=== PATIENT | female | born 1945 ===

== ENCOUNTER → 2017-01-31 | Outpatient (CLI) | payer MEDICARE, MEDICAID ==
--- NOTE | 2017-01-31 16:42 | US ---
EXAM DESCRIPTION: Venous,Lower Extremity LT CLINICAL HISTORY: LEFT LEG PAIN COMPARISON: None Available. TECHNIQUE: Two -dimensional and doppler sonographic evaluation of the deep venous system of the left lower extremity. FINDINGS: Doppler evaluation shows normal color flow and normal phasicity and augmentation of the left common femoral vein, deep femoral vein, femoral vein, popliteal vein, greater saphenous vein, peroneal, and posterior tibial vein. The left lower extremity deep veins showed normal occlusion with transducer pressure. Two-dimensional survey showed no echogenic thrombus within these veins. IMPRESSION: 1. Duplex ultrasound evaluation of the left lower extremity deep venous system showing no evidence of thrombosis or embolism. Electronically signed by: Brian Moon MD 01/31/2017 4:41 PM CDT
== END | disposition home or self-care (01) ==
LOC: US 11:35
PROVIDERS: ATTEND General Practice
DX: M79.605 Pain in left leg (principal)

== ENCOUNTER → 2017-07-29 | Outpatient (CLI) | payer MEDICARE, MEDICAID ==
--- NOTE | 2017-07-31 22:49 | MRI ---
MRI left ankle without contrast INDICATION: Ankle pain anterior and medial status post surgery left foot TECHNIQUE: Noncontrast MR imaging left ankle FINDINGS: No osteochondral lesion of the talus. No advanced arthrosis or coalition. Achilles and plantar aponeurosis are intact. There is osteoarthrosis with joint space narrowing at the calcaneocuboid joint. Scattered mild midfoot osteoarthrosis multifocal. There is also joint space narrowing indicating osteoarthrosis in the talonavicular joint. There is metal artifact near the region of the posterior tibialis attachment apparently from posterior tibialis reconstruction correlate with surgical history. This area is obscured by artifact but there is no ozzie rupture or retraction of the posterior tibialis tendon. There is an indistinct distal peroneus brevis with flattening and thinning of the proximal portion. Findings indicate tendinosis and mild chronic partial tear. Prominent yellow marrow pattern suggests possible osteopenia/osteoporosis consider bone densitometry/DEXA. Ill-defined tendinosis distal posterior tibialis tendon especially near the repair site. Mild soft tissue edema anterior medial aspect of the ankle and foot superficial to the posterior tibialis tendon. IMPRESSION: Multifocal osteoarthrosis calcaneocuboid and talonavicular primarily with lower grade changes in the TMT compartments and the remainder of the midfoot Metal artifact likely from distal posterior tibialis repair with tendinosis but no ozzie rupture or retraction Tendinosis and low-grade chronic partial tear peroneus brevis Soft tissue edema anterolateral foot and ankle Prominent yellow marrow question osteopenia/osteoporosis consider bone densitometry DEXA Electronically signed by: Owen Dawkins MD 07/31/2017 10:47 PM CDT
== END | disposition home or self-care (01) ==
LOC: MRI 10:00
PROVIDERS: ATTEND General Practice
DX: M25.572 Pain in left ankle and joints of left foot (principal)

== ENCOUNTER → 2018-03-03 | Outpatient (CLI) | payer MEDICARE, MEDICAID ==
--- NOTE | 2018-03-03 14:28 | MRI ---
EXAM DESCRIPTION: Lumbar Spine w/o Contrast : Magnetic Resonance Imaging. CLINICAL HISTORY: LUMBAR COMPRESSION FX S32.0005 COMPARISON: LUMBAR TECHNIQUE: Multiplanar, multiple standard sequences, non contrast MRI, lumbar spine. FINDINGS: L5-S1: No significant disc desiccation. No posterior disc bulging. Minimal concavity in the inferior L5 endplate. No marrow edema. Bilateral facet arthrosis more on the right with left flavum ligament hypertrophy. Mild canal narrowing. Moderate right foraminal narrowing. Abnormal marrow edema in the S1 segment extending into the pedicles bilaterally and also extending inferiorly into the sacral ala and the sacral bodies. Question of expansion of the left S2 and S3 sacral cedeño. L4-5: No significant desiccation of the disc. No posterior bulging. Hyperintense T2-weighted annular fissure in the posterior margin. Minimal hypertrophy of the flavum ligaments. Mild canal narrowing. Mild right foraminal narrowing and moderate left foraminal narrowing. Minimal facet arthrosis bilaterally. Concavities of the superior and inferior endplates with no marrow edema. L3-4: Desiccated signal minimal in the disc. Small posterior midline focal bulge or protrusion. Concavity of the superior L4 endplate more than the inferior L3 endplate. No marrow edema. Mild left foraminal narrowing and mild to moderate right foraminal narrowing. L2-3: Partially desiccated signal in the disc with no bulging. Expansion of the disc space with concavity of the superior L3 endplate and the inferior L2 endplate. Marrow edema in the L3 endplate. Posterior elements unremarkable. No canal stenosis. Bilateral moderate foraminal narrowing. L1-2: Concavities of the superior and inferior endplates with expansion of the disc but no significant desiccation. Moderate bilateral foraminal narrowing. No abnormal marrow edema in the endplates. Minimal facet arthrosis and flavum ligament hypertrophy but no canal stenosis. T12-L1: Concavities of the superior L1 endplate and the inferior T12 endplate with irregularities in the superior L1 endplate and significant loss of height in the central vertebral body. No marrow edema in the vertebral body or posterior elements. 3 mm retropulsion of the superior endplate with moderate narrowing of the canal. Conus terminates just above the disc space. Bilateral moderate foraminal narrowing. Mild central compression injury of T12 with retropulsion of the superior endplate which is abutting the distal cord. Normal signal in the cord. T11 vertebral body height is unremarkable. Concavities in the superior and inferior T10 endplates with augmentation material within the body. Marked compression of the mid and anterior T9 vertebral body but no significant retropulsion. Right convex thoracolumbar curvature. Paravertebral soft tissues demonstrate muscle atrophy.. Normal marrow signal in the remaining vertebral bodies and the posterior elements. No other Vertebral bodies are compressed . IMPRESSION: 1. Multiple concavities in the endplates and compression deformities at multiple levels. Marrow edema in the superior L3 endplate which is depressed suggests recent injury. 2. Marrow edema in the S1 sacral segment extending into the bilateral sacral ala and the more inferior sacrum suggests recent injury which could be a result of direct trauma or stress fracture. Recommend MRI scan of the pelvis and sacrum for correlation. 3. Annular fissure in the posterior L4-5 disc. Moderate left foraminal narrowing. Moderate right foraminal narrowing at L5-S1. 4. Small posterior midline focal bulge or protrusion of the L3-4 disc. Mild to moderate right foraminal narrowing. Mild canal narrowing. 5. Bilateral moderate foraminal narrowing L1-2. 6. Multiple old compression injuries in the included thoracic spine except for T11. Previous augmentation T10 vertebral body. T12 vertebral body compression is old. Electronically signed by: Brian Moon MD 03/03/2018 2:27 PM [facility]
== END ==
LOC: MRI 11:00
PROVIDERS: ATTEND General Practice
DX: S32.000S Wedge compression fracture of unspecified lumbar vertebra, sequela (principal); M51.26 Other intervertebral disc displacement, lumbar region; M51.16 Intervertebral disc disorders with radiculopathy, lumbar region

== ENCOUNTER → 2018-09-22 | Outpatient (CLI) | payer MEDICARE, MEDICAID ==
--- NOTE | 2018-09-22 14:59 | CT ---
EXAM DESCRIPTION: Chest w/Contrast : Computed Tomography. CLINICAL HISTORY: 73 years Female ABNORMAL CXR COMPARISON: None. TECHNIQUE: Spiral-axial scans at 5 x 5 mm intervals through the lungs and thorax with IV contrast. 2.5 x 5 mm lung algorithm axial reconstructions. Coronal and sagittal 2.0 Mm reconstructions. No adverse reactions. Total Exam DLP: 161.95 mGy-cm. This exam was performed according to our departmental dose-optimization program which includes automated exposure control, adjustment of the mA and/or kV according to patient size and/or use of iterative reconstruction technique; to reduce radiation dose to as low as reasonably achievable (ALARA). Nodule measurements under 10 mm are given as mean value of 3 axes diameters.. Some images are degraded by patient respiratory motion and body motion. FINDINGS: Lungs and large airways: 2 mm calcified nodule posterior left upper lobe anterior to the upper major fissure on axial series 4, image 24. Pleural parenchymal scarring in the inferior lingula and in the left lower lobe. Basilar posterior dependent atelectasis more left than right. No abnormal nodules or masses. No focal infiltrate. Decreased volume left lower lobe. Pleural spaces: Bilateral scattered focal pleural thickening. Bilateral apical pleural thickening. Bilateral basilar pleural thickening. No effusion or pneumothorax bilaterally. Mediastinum and Bia: No distinct enlarged nodes are soft tissue masses. Distention of esophagus by apparent food particles from the level of the raúl to just above the gastroesophageal junction and in the distal esophagus extending into the stomach. Great vessels and Heart: Atherosclerotic calcification in the aortic arch and descending thoracic aorta. Ectasia of the aortic arch. Coronary artery calcifications. Calcification of some of the included brachiocephalic vessels. Mild cardiac enlargement. Bilateral main pulmonary arteries and bilateral lobar and segmental pulmonary artery branches showing no filling defects. Soft tissues of neck base, axillae, and chest wall: Bilateral axillary nodes are not enlarged. Thyroid gland negative. Bilateral vascular and parenchymal calcifications in the breasts. Upper abdomen: Stomach distended by fluid. Also extending into the duodenum. No free fluid or free air in the included peritoneal space. Atherosclerotic changes in the abdominal aorta and major branch vessels. Partial visualization of the gallbladder. Osseous structures: Exaggerated thoracic kyphosis with overall loss of bone density. Multiple levels of compression fractures with prior vertebral body augmentation at T11 and T9. Possible cement anterior T10. Untreated compression fractures T6-T8, T10-L3. Arthrosis advanced in the left glenohumeral joint. Bilateral sternoclavicular arthrosis. IMPRESSION: 1. No abnormal nodules, no masses, and no focal infiltrates in the lungs. Minimal pleural-parenchymal scarring as noted. 2. Distention of the mid and distal esophagus, stomach, and duodenum by food. Correlate with clinical findings. 3. Multiple level of compression type vertebral body fractures in the thoracic spine from T6 to L3. Some levels have been treated by cement augmentation. 4. Thoracic aortic atherosclerosis and ectasia with no stenosis or aneurysm. Bilateral main pulmonary artery branches showing no emboli. Electronically signed by: Brian Moon MD 09/22/2018 2:57 PM CDT
== END ==
LOC: CT 13:40
PROVIDERS: ATTEND Nurse Practitioner
DX: R91.8 Other nonspecific abnormal finding of lung field (principal); R09.1 Pleurisy; M48.55XG Collapsed vertebra, not elsewhere classified, thoracolumbar region, subsequent encounter for fracture with delayed healing; I70.0 Atherosclerosis of aorta; I77.810 Thoracic aortic ectasia; Z98.1 Arthrodesis status

== ENCOUNTER → 2020-03-10 | Outpatient (CLI) | payer MEDICARE, MEDICAID ==
--- NOTE | 2020-03-11 08:51 | MRI ---
Study: MRI of the Left Foot. Indication: LEFT FOOT ULCER Technique: Multiplanar, multi sequence MRI of the left foot was obtained with and without intravenous contrast. Comparison: MRI left ankle July 29, 2017. Findings: Metal artifact along the medial half of the talonavicular joint redemonstrated, likely related to posterior tibialis tendon repair. Insertional tendinosis and likely partially tearing but difficult to evaluate given the artifact. No complete rupture. Severe talonavicular joint osteoarthritis with additional scattered mild to moderate osteoarthritic change of the midfoot. No acute fracture or talar coalition. Scattered subcutaneous edema about the ankle. No drainable fluid collection. No definitive osteomyelitis. Surgical screw suspected the first metatarsal neck. Minimal marrow edema within the posteromedial margin of the posterior calcaneal tuberosity. No rupture of the plantar fascia. Peroneus brevis tendinosis with longitudinal fissuring posterior and inferior to the lateral malleolus. No pathologic enhancing lesion. Impression: Scattered cellulitis of the left foot and ankle without drainable fluid collection or definitive osteomyelitis. Severe talonavicular joint osteoarthritis with scattered mild to moderate changes of the remainder midfoot. Metal artifact at the medial margin of the talonavicular joint, likely related to posterior tibialis tendon repair. Insertional tendinosis and partial-thickness tearing suspected. No rupture. Mild marrow edema posteromedial margin posterior calcaneal tuberosity, likely stress-related but nonspecific. Additional findings as above. Electronically signed by: Andrés Persaud MD 03/11/2020 8:49 AM [facility]
== END ==
LOC: MRI 11:00
PROVIDERS: ATTEND General Practice
DX: L97.529 Non-pressure chronic ulcer of other part of left foot with unspecified severity (principal); L03.116 Cellulitis of left lower limb; M19.072 Primary osteoarthritis, left ankle and foot; M65.271 Calcific tendinitis, right ankle and foot; R60.0 Localized edema